=== PATIENT | male | born 1970 | race Caucasian/White ===

== ENCOUNTER 2019-05-21 07:34 | Emergency (ER) | payer OTHER ==
[~2019-05-21] VITALS: Ht 170.2 cm; Wt 89.8 kg
[2019-05-21] MEDS ORDERED: COZAAR25 MG (08:08)
[2019-05-21] MEDS ORDERED: FORTAMET500 MG (08:08)
[2019-05-21] MEDS ORDERED: ENALAPRIL MALE2.5 MG (08:08)
== END 2019-05-21 12:59 | disposition home or self-care (01) ==
LOC: ER 07:34
DX: J06.9 Acute upper respiratory infection, unspecified (principal); R05 Cough

== ENCOUNTER 2021-04-22 08:17 | Outpatient (CLI) | payer OTHER ==
[~2021-04-22 08:17] MED LIST: COZAAR25 MG; ENALAPRIL MALE2.5 MG; FORTAMET500 MG
== END 2021-04-22 08:33 | disposition home or self-care (01) ==
LOC: LAB 08:17
PROVIDERS: ATTEND Internal Medicine
DX: R10.84 Generalized abdominal pain (principal)